=== PATIENT | male | born 1945 | race Caucasian/White ===

== ENCOUNTER 2021-09-18 07:29 | Emergency (ER) | payer MEDICARE ==
[~2021-09-18] VITALS: Ht 180.3 cm; Wt 147.4 kg
[2021-09-18] MEDS ORDERED: METFORMIN HCL1000 M1 PO (07:46)
[2021-09-18] MEDS ORDERED: AMOX TR-K CLV1 EAC1 PO (07:46)
[2021-09-18] MEDS ORDERED: SPIRIVA RESPIMAT4 G1 INH (07:46)
[2021-09-18] MEDS ORDERED: JANUVIA50 MG PO (07:46)
[2021-09-18] MEDS ORDERED: XARELTO10 MG PO (07:47)
[2021-09-18] MEDS ORDERED: FLOMAX0.4 MG PO (07:47)
[2021-09-18] MEDS ORDERED: LIPITOR80 MG GT (07:47)
[2021-09-18] MEDS ORDERED: PACERONE200 MG PO (07:47)
[2021-09-18] MEDS ORDERED: FUROSEMIDE40 MG PO (07:48)
[2021-09-18] MEDS ORDERED: ALLOPURINOL300 MG PO (07:48)
[2021-09-18] MEDS ORDERED: NITROSTAT0.4 MG SL (07:48)
[2021-09-18] MEDS ORDERED: TOPROL XL50 MG PO (07:48)
[2021-09-18] MEDS ORDERED: CIPRO500 MG PO (08:20)
[2021-09-18] MEDS ORDERED: HYDROCODON-ACE1 EA11 PO (08:20)
== END 2021-09-18 08:38 | disposition home or self-care (01) ==
LOC: ED 07:29
DX: H60.92 Unspecified otitis externa, left ear (principal); J44.9 Chronic obstructive pulmonary disease, unspecified; I10 Essential (primary) hypertension; E11.9 Type 2 diabetes mellitus without complications; I48.91 Unspecified atrial fibrillation; Z79.899 Other long term (current) drug therapy; Z88.6 Allergy status to analgesic agent; Z88.8 Allergy status to other drugs, medicaments and biological substances; Z79.84 Long term (current) use of oral hypoglycemic drugs
CPT/HCPCS: 99282